=== PATIENT | female | born 1990 | race Caucasian/White ===

== ENCOUNTER 2018-09-18 00:12 | Emergency (ER) | payer BC ==
[~2018-09-18] VITALS: Ht 175.3 cm; Wt 56.7 kg
[2018-09-18 00:28] VITALS: BP 125/78
[2018-09-18 00:47] VITALS: BP 122/78
[2018-09-18 00:48] VITALS: BP 125/78
--- NOTE | 2018-09-18 01:33 | Emergency Room Report ---
History of Present Illness General Chief Complaint: Female Urogenital Problems Source: Patient Present Illness HPI 27-year-old female presents ED for evaluation. States that she has a tampon stuck the last few days cannot get it out. States she can feel it. Denies any pain. Denies any fevers or chills. Denies any discharge. Denies any vaginal bleeding. No other aggravating relieving factors. Denies any other associated symptoms Allergies: Coded Allergies: CIPROFLOXACIN (Verified Allergy, Unknown, 09/18/18) Patient History Past Medical History: none Past Surgical History: none Pertinent Family History: none Social History: Denies: smoking, alcohol use, drug use Last Menstrual Period: 6 days ago Now: No Immunizations: UTD Reviewed Nursing Documentation: PMH: Agreed; PSxH: Agreed Nursing Documentation-PMH Past Medical History: No Stated History Review of Systems All Other Systems: negative except mentioned in HPI Physical Exam Vital Signs Date Time Temp Pulse Resp B/P (MAP) Pulse Ox O2 Delivery O2 Flow Rate FiO2 09/18/18 00:20 98.1 90 18 125/78 99 Room Air Sp02 EP Interpretation: reviewed, normal General Appearance: no apparent distress, alert, GCS 15, non-toxic Head: normocephalic Eyes: bilateral eye normal inspection, bilateral eye PERRL ENT: normal ENT inspection Neck: normal inspection Respiratory: normal inspection Cardiovascular #1: normal inspection Gastrointestinal: normal bowel sounds, non tender, soft, non-distended, no guarding, no rebound Rectal: deferred Genitourinary: no CVA tenderness, adnexa normal, os closed, other - plant and maintenance technician present. tampon noted in cervical canal Musculoskeletal: normal inspection Neurologic: alert, oriented x3, responsive, motor strength/tone normal, sensory intact, speech normal Psychiatric: normal inspection Skin: normal inspection Lymphatic: normal inspection Procedures Additional Procedure Procedure Narrative Patient placed in supine position. Legs in stirrups. Certified Ophthalmic Medical Technician at bedside. Using sterile speculum I was able to identify the foreign body. Using sterile forceps I was able to grab and retrieve the foreign body. Patient tolerated procedure without complication Medical Decision Making Diagnostic Impression: Primary Impression: Retained tampon Qualified Codes: T19.2XXA - Foreign body in vulva and vagina, initial encounter ER Course 27year-old female presents ED complaining of retained tampon Differential-foreign body, cellulitis, abscess Patient placed on stretcher. After initial history, patient placed in supine position. Legs in stirrups. Certified Ophthalmic Medical Technician at bedside. Sterile speculum we are able to identify the foreign body. Using sterile forceps I was able to retrieve the foreign body without complication. Discussed findings with patient afterwards. Discussed the option of antibiotics. Patient declined antibiotic stating that she gets bad reactions to antibiotics. States that she will follow-up properly with her SAP ANALYST tomorrow. Patient is afebrile, nontoxic appearing Diagnosis- retained tampon Stable discharged to home. Followup with OBGYN. Return to ED if symptoms recur or worsen Last Vital Signs Date Time Temp Pulse Resp B/P (MAP) Pulse Ox O2 Delivery O2 Flow Rate FiO2 09/18/18 00:48 98.1 70 18 125/78 99 Room Air Status: improved Disposition: HOME, SELF-CARE Condition: Stable Scripts No Active Prescriptions or Reported Meds Patient Instructions: Vaginal Foreign Body, Koje-[id number] Saeid Casillas MD Sep 18, 2018 01:33
== END 2018-09-18 00:49 | disposition home or self-care (01) ==
LOC: EMR 00:35
DX: T19.2XXA Foreign body in vulva and vagina, initial encounter (principal); X58.XXXA Exposure to other specified factors, initial encounter
CPT/HCPCS: 99284